=== PATIENT | male | born 1970 | race Caucasian/White ===

== ENCOUNTER → 2017-10-28 | Outpatient (CLI) | payer OTHER | END | disposition home or self-care (01) | LOC: PEDOP 19:02 | PROVIDERS: ATTEND Orthopaedic Surgery | DX: Z01.812 Encounter for preprocedural laboratory examination (principal) | CPT/HCPCS: 87070; 99212 ==

== ENCOUNTER 2017-11-04 12:24 | Day surgery (SDC) | payer OTHER ==
[2017-10-27 16:43] VITALS: BMI 41.1
--- NOTE | 2017-11-04 08:33 | HP ---
HISTORY AND PHYSICAL CHIEF COMPLAINT: Left knee pain. 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 He notes pain that limits his normal function and activities. He has intermittent swelling, stiffness, and giving way. He has tried previous injections in addition to medications with only partial temporary relief. PAST MEDICAL HISTORY: Significant for hypertension, hypercholesterolemia, kidney stones, type 2 diabetes. PAST SURGICAL HISTORY: Significant for previous right knee arthroscopy. CURRENT MEDICATIONS: 1. Amlodipine. 2. Atorvastatin. 3. etolodac 4. Hydrochlorothiazide. 5. Metformin. 6. Trazodone. ALLERGIES: He denies drug allergies. FAMILY HISTORY: Significant for cancer and diabetes. SOCIAL HISTORY: Negative for current tobacco or alcohol use. REVIEW OF SYSTEMS: Sixteen-point review of systems otherwise reviewed and is noncontributory. PHYSICAL EXAMINATION: On examination, the patient is approximately 5 feet, 11 inches, 295 pounds of endomorphic habitus. HEENT exam is nonfocal. Neck is supple. He has painless passive motion of his left hip. Straight leg raise is negative. Active motion left knee -12 to 80 degrees of flexion. He is tender about the medial and lateral joint line. He has a large effusion. Collaterals are stable, Jarrod's negative, Jimmie's is equivocal. His distal neurovascular exam appears intact in the left lower extremity. Previous x-rays of the left knee obtained in the office show severe medial and patellofemoral compartment narrowing. IMPRESSION: 1. Left knee severe medial and patellofemoral compartment osteoarthrosis. 2. Increased body mass index. 3. Fck-koobhum-iunukssmg diabetes. RECOMMENDATIONS: I talked to the patient at length regarding his condition and treatment options. At this point, he remains quite symptomatic despite extensive conservative measures. After thorough discussion, he opts to proceed with surgery. We will plan to proceed with left total knee arthroplasty. Risks and benefits were discussed at length in layman's terms. The patient underwent preoperative medical evaluation by Dr. Junior Webb. We will institute DVT prophylaxis postoperatively. MMODL / IJN: [id number] / RIYA
[~2017-11-04 12:24] MED LIST: ACETAMINOPHEN TAB 500 MG TAB PO ONE; MELOXICAM 7.5 MG TAB PO ONE; TRANEXAMIC ACID 1,000 MG in SODIUM CHLORIDE 0.9% 50 ML IVPB ONE
[2017-11-04] MEDS ORDERED: ONDANSETRON 4 MG/2 ML VIAL ONE (13:37)
[2017-11-04 13:43] LABS: Glucose,Whole Blood 104 mg/dL (75-99)
[2017-11-04] MEDS: LACTATED RINGERS 1,000 ML IV ONE ×2 (13:44→17:10)
[2017-11-04] MEDS: MIDAZOLAM 2 MG/2 ML VIAL ONE ×2 (13:48→13:49)
[2017-11-04] MEDS ORDERED: DEXAMETHASONE SOD PHOS (MDV) 100 MG/10 ML VIAL IVP ONE (14:00)
[2017-11-04] MEDS ORDERED: LACTATED RINGERS 1,000 ML IV ONE ×3 (14:08→17:41)
[2017-11-04] MEDS ORDERED: MIDAZOLAM 2 MG/2 ML VIAL ONE (14:08)
[2017-11-04] MEDS ORDERED: TRANEXAMIC ACID 1,000 MG/10 ML VIAL ONE (14:08)
[2017-11-04] MEDS ORDERED: fentaNYL (PF) 50 MCG/ML 2 ML AMP ONE (14:08)
[2017-11-04] MEDS ORDERED: PROPOFOL 10 MG/ML 20 ML VIAL IV ONE (14:08)
[2017-11-04] MEDS ORDERED: diphenhydrAMINE 50 MG/ML 1 ML VIAL ONE (14:08)
[2017-11-04] MEDS ORDERED: HYDROmorphone (PF) 1 MG/ML ONE (14:08)
[2017-11-04] MEDS ORDERED: SODIUM CHLORIDE 0.9% 100 ML BAG ONE (14:08)
[2017-11-04] MEDS ORDERED: MIDAZOLAM 2 MG/2 ML VIAL IV PRN (14:12)
[2017-11-04] MEDS ORDERED: ONDANSETRON 4 MG/2 ML VIAL IVP ONE (14:12)
[2017-11-04] MEDS ORDERED: LACTATED RINGERS 1,000 ML IV SCH (14:12)
[2017-11-04] MEDS ORDERED: DEXAMETHASONE SOD PHOSPHATE 10 MG/ML 1 ML VIAL IV ONE (14:12)
[2017-11-04] MEDS ORDERED: ceFAZolin 3,000 MG in SODIUM CHLORIDE 0.9% IRRIGATIO 3,000 ML IRRIGATION ONE (14:39)
[2017-11-04] MEDS ORDERED: ROPIVACAINE 246.25 MG, EPINEPHrine 0.5 MG, KETOROLAC 30 MG, cloNIDine HCL/PF 80 MCG, WA... MISCELLANE ONE ×5 (14:44)
[2017-11-04] MEDS ORDERED: ONDANSETRON 4 MG/2 ML VIAL IVP PRN (16:33)
[2017-11-04] MEDS ORDERED: HYDROcodone/APAP 7.5-325MG 1 EACH TAB PO PRN (16:33)
[2017-11-04] MEDS ORDERED: MORPHINE SULFATE 2 MG/ML SYRINGE IV PRN (16:33)
[2017-11-04] MEDS ORDERED: MORPHINE SULFATE 2 MG/ML SYRINGE IVP PRN (16:33)
[2017-11-04] MEDS ORDERED: NALOXONE 0.4 MG/ML 1 ML VIAL IV PRN (16:33)
--- NOTE | 2017-11-04 16:46 | P.OP ---
Date of Procedure: 11/04/17 Preoperative Diagnosis: Left knee severe tricompartmental osteoarthrosis Postoperative Diagnosis: Same Procedure(s) Performed: Left total knee kwixifiwziqj-pithhzjt-dmdxucrsd stabilized Implants: Depuy Attune size 7 cemented posterior stabilized femoral component, size 6 cemented tibial component, 9 mm articular surface, 35 mm cemented patellar component. This is a posterior stabilized implant. Anesthesia: GETA, regional, local, spinal Surgeon: Ricardo Lowe Estimated Blood Loss (ml): 50 Pathology: other (Bone fragments) Condition: stable Disposition: PACU Indications for Procedure: The patient's a 46-year-old male who presents with progressive left knee pain secondary to osteoarthrosis despite conservative measures. A discussion of the risks and benefits of operative intervention versus continued conservative measures was made with the patient. He opted to proceed with surgery. Operative risks to include infection, neurovascular injury, development of blood clots, possible component loosening, possible component failure need for subsequent procedures was discussed. Informed consent was obtained. Operative Findings: As below Description of Procedure: The patient was brought to the operating room, and after induction of spinal anesthesia the left lower extremity was prepped and draped in a normal fashion. The tourniquet was inflated to 270 mmHg. A longitudinal incision extending 3 finger breaths above the superior pole of patella extending to the medial aspect the tibial tubercle was then made. The skin and subcutaneous tissues were divided sharply. Electrocautery was used for hemostasis. A medial parapatellar arthrotomy is performed. The medial soft tissues to include the superficial and deep portions of the medial collateral ligament and medial hamstring tendons were elevated subperiosteally. The proximal medial tibia osteophytes were carefully removed. The patella was everted. A portion of the retropatellar fat pad was excised sharply. The knee was flexed. The anterior cruciate ligament was sacrificed. A starting hole was made in the distal femur 1 cm anterior to the posterior cruciate ligament origin. An intramedullary femoral guide was gently inserted planning a 5 valgus distal cut with 9 mm distal resection. The cutting block was pinned in place. The distal cut was then made. The posterior referencing sizing guide was utilized. I felt size 7 was most appropriate. 3 of external rotation was built into the system and verified off the trans-epicondylar axis the posterior condyles. The cutting block was pinned in place. The anterior, posterior, and chamfer cuts were then made. The bone fragments were removed. The box guide was utilized for the intercondylar notch cut. A reciprocating saw was utilized for the bone was removed in one fragment. The trial size 7 femoral components placed and was fully seated. There is good anterior to posterior and medial to lateral fit. The distal peg holes were then drilled. The trial component was removed. Attention was then paid towards preparing the proximal tibia. An extra measure tibial guide was utilized in line with the tibial shaft and second metatarsal distally. A 0 posterior slope cutting block was utilized. I planned on 2 mm resection from the medial compartment. The cutting block was pinned in place. The proximal tibial cut was made. The bone was removed in one fragment. The tibia sized most appropriately size 6. The remnants of the medial and lateral menisci were excised at the capsular junction with electrocautery. The patient' s anesthesia was converted to general as the spinal was insufficient. The trial components were placed along with a 9 mm articular surface. I was tight in both flexion and extension therefore an additional 2 mm was resected from the proximal tibia utilizing the cutting block. Again the trial components were placed and was able to obtain full flexion and extension with good stability with varus and valgus stress. After several flexion and extension cycles, the tibial rotation was marked with electrocautery in line with the medial one third of the tibial tubercle. Attention was then paid towards preparing the patella. A patella reamer was utilized taking Fany 15 mm of bone stock. A good flush cut was made. The patella sized most appropriately 35 mm. The peg holes were drilled. The trial components placed. The knee was taken through range of motion. I had good patellofemoral tracking with no hands technique. The trial components were then removed. The posterior osteophytes off the distal femur were carefully removed with a curved osteotome. The tibia was prepared in the appropriate rotation with appropriate drill and keel punch. The flexion and extension gaps were checked and felt to be symmetric. The posterior soft tissues were injected with ropivacaine. The bony surfaces were prepared with pulsatile lavage and dried. Additional drill holes were made in the proximal medial tibia to facilitate cement interdigitation. The tibial component was then cemented in placed and was fully seated. Excess cement was removed. The femoral component was cemented in place and was fully seated. Excess cement was removed. The trial 9 mm articular surface was placed and the knee was put in full extension. The patella component was cemented place as well. After the cement had sufficiently hardened, the knee was again taken through range of motion. Again I was able to obtain full flexion and extension with good stability with varus and valgus stress. The trial articular surface was removed and the final one inserted. This was fully seated. Care was taken to avoid any soft tissue interposition. Pulsatile lavage was again utilized. The tourniquet was deflated the proximal a 70 minutes total tourniquet time. The medial parapatellar arthrotomy was closed with #2 Ethibond suture. The second dose of IV TXA was given. A deep drain was placed exiting laterally. The subcu tissues reapproximated interrupted 2-0 Vicryl sutures. The skin was reapproximated with 3-0 strata fix suture. Skin tape and adhesive was applied. A sterile dressing was applied. The patient was awoken from general anesthesia and transferred to the recovery room in good condition. Blood loss was estimated at 50 mL. No complications were incurred. Sponge and needle counts were correct at the end the case.
[2017-11-04] MEDS: HYDROmorphone 0.5 MG/0.5 ML SYRINGE IVP PRN ×3 (16:47→17:21)
--- NOTE | 2017-11-04 17:02 | XR ---
PROCEDURE: XR knee limited LT 2 views DATE AND TIME: 11/04/2017 4:57 PM REFERRING PHYSICIAN: Ricardo Lowe MD CLINICAL INDICATION: PHH, Evaluation for Postop abnormality and alignment TECHNIQUE: Department protocol. COMPARISON: None FINDINGS: Post TKR, with anatomic positioning and alignment noted. No unexpected postoperative change s. IMPRESSION: Postoperative study.
[2017-11-04] MEDS ORDERED: ROPIVACAINE 1,100 MG, SODIUM CHLORIDE 0.9% 330 ML MISCELLANE PRN ×2 (17:25)
--- NOTE | 2017-11-04 17:27 | P.ONQ ---
Anesthesiology Proc Note - PNB - Peripheral Nerve Block Performed Left Adductor Canal Infusion Time Out Performed: Yes Procedure Start Time: 13:49 Procedure Stop Time: 14:00 Indication: Acute Post-Operative Pain, Requested by physician Sedation Type: Sedate with meaningful contact maintained Preparation: Sterile Dressing Position: Supine Catheter: Indwelling Needle Types: On-Q Needle Size: 100mm (4") Needle Gauge: 21 Technique: Ultrasound Injectate: 0.5% Ropivacaine (see comment for volume) (ropi .5% 20cc) Blood Aspirated: No Pain Paresthesia on Injection Noted: No Resistance on Injection: Normal Events: Uneventful and Well Tolerated
[2017-11-04] MEDS ORDERED: ACYCLOVIR OINTMENT TOPICAL PRN (19:58)
[2017-11-04 20:52] VITALS: RESP 16
[2017-11-04 20:55] LABS: Glucose,Whole Blood 163 mg/dL (75-99)
[2017-11-04] MEDS: INSULIN ASPART 100 UNIT/ML 1 ML 10 ML VIAL SQ SCH (21:12)
[2017-11-04] MEDS: POTASSIUM CHLORIDE ER 10 MEQ TAB.ER.PRT PO SCH (21:13)
[2017-11-04] MEDS: metFORMIN 500 MG TAB PO SCH (21:13)
[2017-11-04] MEDS: SODIUM CHLORIDE 0.9% 1,000 ML IV SCH (21:25)
--- NOTE | 2017-11-04 22:18 | CONS ---
CONSULTATION The reason for consultation is advice regarding diabetes, hypertension and hyperlipidemia requested by Orthopedic Surgery. HISTORY OF PRESENT ILLNESS: This 46-year-old gentleman with a past history of hypertension, diabetes and DJD being followed by Dr. Santiago Webb in the outpatient was admitted after left total knee arthroplasty. The patient is being closely monitored. There is no history of chest pain. No palpitations, headache, loss of consciousness, seizures, nausea, vomiting or diarrhea at this time. Pulse ox 92% on room air. PAST MEDICAL HISTORY: Diabetes mellitus, hypertension, hyperlipidemia, history of DJD. MEDICATIONS: Prior to admission include home medications: 1. Metformin 500 mg p.o. b.i.d. 2. Norvasc 10 mg daily. 3. Triamterene/hydrochlorothiazide 1 tablet p.o. daily. 4. Klor-Con 10 30 mg p.o. b.i.d. 5. Multivitamins 1 p.o. daily. 6. HydroDIURIL 25 mg p.o. daily. 7. Glucosamine 1500 mg p.o. daily. 8. Fish oil 1 each daily. 9. Lodine XL 500 mg p.o. daily. 10.Lipitor 40 mg daily. 11.Zovirax 1 application topically daily. ALLERGIES: None. FAMILY HISTORY: History of blood disorder, DVT, factor V Leiden deficiency. SOCIAL HISTORY: No history of smoking, occasional alcohol. REVIEW OF SYSTEMS: ENT: No diminished vision or hearing. CARDIOVASCULAR: No angina. RESPIRATORY: No cough or hemoptysis. GI: No nausea. : No dysuria. NERVOUS SYSTEM: No numbness or weakness. ALLERGY/IMMUNOLOGY: No asthma or hayfever. MUSCULOSKELETAL: As mentioned earlier. HEMATOLOGY: No history of anemia. ENDOCRINE: Diabetes mellitus. CONSTITUTIONAL: As mentioned. DERMATOLOGY: Negative. RHEUMATOLOGY: As mentioned earlier. PSYCHIATRY: As mentioned earlier. PHYSICAL EXAMINATION: Alert and oriented x3. Pulse 87, blood pressure 180/71, respiration 16, temperature 97.8, pulse ox 94% on room air. HEENT: Conjunctivae normal. Oral mucosa moist. Neck is no jugular venous distention. No carotid bruit. No lymph node enlargement. CARDIOVASCULAR: S1, S2. No S3, S4. RESPIRATORY: Breath sounds diminished in the bases. No rhonchi. No crackles. ABDOMEN: Soft, nontender. LEGS: Status post left knee arthroplasty. NERVOUS SYSTEM: No focal deficits. SKIN: No ulcer, rash or bleeding. LAB STUDIES: Glucose 163. ASSESSMENT: 1. Status post left total knee joint arthroplasty. 2. Diabetes mellitus type 2. 3. Hypertension. 4. Hyperlipidemia. 5. Degenerative joint disease. 6. History of nephrolithiasis. 7. History of factor V Leiden tested negative. 8. FULL CODE. RECOMMENDATIONS AND DISCUSSION: In this 46-year-old gentleman who presented with multiple complex medical issues, we will monitor the patient closely. Continue the current management and continue symptomatic treatment. At this time I recommend to resume the home medications. Monitor blood sugars closely. Xarelto has been initiated for DVT prophylaxis. We will closely follow the patient with you and the patient may be asked to follow the primary physician closely. Thank you, Dr. Schmitt, for letting us participate. ERICA / XAVIER: [id number] /
[2017-11-04] MEDS: ceFAZolin IN SWFI 2 GM/20 ML SYRINGE IVP SCH (23:16)
[2017-11-05 06:56] LABS: Basophils % (A) 0 %; Eosinophils % (A) 0 %; HCT 38.2 % (39.0-53.0); HGB 12.6 gm/dL (13.0-17.5); Lymphocytes # (A) 1.2 k/uL (1.0-4.8); Lymphocytes % (A) 9 %; MCH 29.8 pg (25.0-35.0); MCHC 32.9 g/dL (31.0-37.0); MCV 90.5 fL (80.0-100.0); Mean Platelet Volume 6.5; Monocytes # (A) 0.7 k/uL (0-1.0); Monocytes % (A) 6 %; Neutrophils # (A) 10.6 k/uL (1.3-7.7); Neutrophils % (A) 84 %; Platelet Count 262 k/uL (150-450); RBC 4.22 m/uL (4.30-5.90); WBC 12.7 k/uL (3.8-10.6)
[2017-11-05 07:21] LABS: Glucose,Whole Blood 132 mg/dL (75-99)
[2017-11-05 07:46] VITALS: BP 120/73; PULSE 83; TEMP 97.6
[2017-11-05] MEDS: metFORMIN 500 MG TAB PO SCH (08:05)
[2017-11-05] MEDS: POTASSIUM CHLORIDE ER 10 MEQ TAB.ER.PRT PO SCH (08:08)
[2017-11-05] MEDS: HYDROcodone/APAP 7.5-325MG 1 EACH TAB PO PRN ×2 (08:09→13:29)
[2017-11-05] MEDS: INSULIN ASPART 100 UNIT/ML 1 ML 10 ML VIAL SQ SCH ×2 (08:11→12:57)
[2017-11-05] MEDS: ceFAZolin IN SWFI 2 GM/20 ML SYRINGE IVP SCH (08:12)
[2017-11-05] MEDS ORDERED: HYDROCHLOROTHIAZIDE 25 MG TAB PO SCH (09:00)
[2017-11-05] MEDS ORDERED: ATORVASTATIN 40 MG TAB PO SCH (09:00)
[2017-11-05] MEDS ORDERED: amLODIPine 10 MG TAB PO SCH (09:00)
[2017-11-05] MEDS ORDERED: TRIAMTERENE-HCTZ 37.5-25MG 1 EACH TAB PO SCH (09:00)
[2017-11-05] MEDS ORDERED: MULTIVITAMINS, THERA 1 EACH TAB PO SCH (09:00)
[2017-11-05] MEDS ORDERED: RIVAROXABAN 10 MG TAB PO SCH (09:00)
--- NOTE | 2017-11-05 10:34 | P.PN ---
Progress Note - Text The patient is status post left adductor canal catheter placement. The catheter was placed for postoperative pain control, status post total left arthroplasty. Ropivacaine 0.2% is infusing at 8 mLs per hour. The patient has no complaints of left lower extremity numbness or weakness. Patient's VAS score is 0 -10. Assessment: Patient's adductor canal catheter is in place and working appropriately. Plan: continue infusion and adjust it as needed.
[2017-11-05 11:31] LABS: Glucose,Whole Blood 145 mg/dL (75-99)
--- NOTE | 2017-11-05 11:43 | P.PN ---
Subjective Progress Note Date: 11/05/17 Principal diagnosis: Status post left total knee arthroplasty Patient is seen today resting in his hospital bed, his family is present with him. Doing very well at this time. Patient is urinating without difficulty. He is done well with physical therapy. He denies any chest pain or shortness of breath. Objective - Vital Signs Vital signs: Vital Signs Temp 97.6 F 11/05/17 07:44 Pulse 83 11/05/17 07:44 Resp 16 11/05/17 07:44 BP 120/73 11/05/17 07:44 Pulse Ox 99 11/05/17 07:44 Intake & Output 11/04/17 11/05/17 11/05/17 18:59 06:59 18:59 Intake Total 2000 Output Total 150 600 425 Balance 1851 -600 -425 Weight 133.81 kg Intake: IV 2000 Output: Drainage 150 Left Knee 150 Urine 100 450 425 Uretheral (Rojas) 300 Estimated Blood Loss 50 Other: Voiding Method Indwelling Catheter - Exam Left lower extremity: Incision is clean, dry, and intact. The prineo tape is in good condition. There is minimal soft tissue swelling and ecchymosis surrounding the medial and lateral aspects of the incision. Calf is soft, no tenderness with palpation. Plantar flexion, dorsiflexion, EHL, FHL are intact. Sensory exam to light touch throughout the extremity is intact, dorsal pedis pulses 2+. - Labs CBC & Chem 7: 11/05/17 06:31 Labs: Abnormal Lab Results - Last 24 Hours (Table) 11/04/17 11/04/17 11/05/17 Range/Units 13:28 20:33 06:31 WBC 12.7 H (3.8-10.6) k/uL RBC 4.22 L (4.30-5.90) m/uL Hgb 12.6 L (13.0-17.5) gm/dL Hct 38.2 L (39.0-53.0) % Neutrophils # 10.6 H (1.3-7.7) k/uL POC Glucose (mg/dL) 104 H 163 H (75-99) mg/dL 11/05/17 11/05/17 Range/Units 07:19 11:28 WBC (3.8-10.6) k/uL RBC (4.30-5.90) m/uL Hgb (13.0-17.5) gm/dL Hct (39.0-53.0) % Neutrophils # (1.3-7.7) k/uL POC Glucose (mg/dL) 132 H 145 H (75-99) mg/dL Assessment and Plan Plan: Assessment: 1. Postop day 1 status post left total knee arthroplasty Plan: Pain control, continue use of oral medication at home GI and DVT prophylaxis, Xarelto 10 mg once daily for 12 days Wound care instructions were discussed Icing and elevating techniques were discussed Medical recommendations Discharge planning: Patient will be discharged home today Time with Patient: Less than 30
--- NOTE | 2017-11-05 11:47 | P.DS ---
Providers Date of admission: 11/04/2017 Expected date of discharge: 11/05/17 Attending physician: Ricardo Lowe Consults: 11/04/17 16:33 Consult Physician Routine Consulting Provider: Betsy Reece Consult Reason/Comments: postop management Do you want consulting provider notified?: Yes Primary care physician: Junior Villanueva [facility] Course: Date of admission: 11/04/2017 Date of discharge: 11/05/2017 Admission diagnosis: Status post left total knee arthroplasty Discharge diagnosis: Same Attending physician: Dr. Lowe Surgical procedures: Left total knee arthroplasty Brief history: Patient is a 46-year-old male with a history of with progressive primary left knee osteoarthritis. At this point patient has failed conservative treatment measures and has opted to proceed with a elective left total knee arthroplasty. Hospital course: Details of patient's surgery can be found in operative report. Patient tolerated the procedure well and was subsequently transported to orthopedic floor. Patient's orthopeidc and medical care was provided daily. Patient had daily laboratory tests performed for evaluation of overall blood counts. Patient had daily physical therapy to include strengthening range of motion as well as education with walker ambulation. Patient had daily CPM usage as part of their physical therapy program. Patient was treated with Xarelto for their postoperative DVT prophylaxis during their inpatient stay. Patient was noted to have a relatively uneventful postoperative course. Patient reported satisfactory pain control with oral pain medications by postoperative day 0. Patient showed satisfactory progress with physical therapy. Patient moved steadily through the program and had no difficulty meeting the goals by postoperative day 1. Given patient's otherwise satisfactory course and having met physical therapy goals, plan is to discharge patient home on postoperative day 1. Discharge condition/disposition: Patient will be discharged home in stable condition. Discharge medications: Instructions are given on resumption of patient's normal daily medications per primary care recommendation, in addition patient will be prescribed [place] 7.5 mg/325 mg, tramadol 50 mg, Colace 100 mg, Xarelto 10 mg. Discharge instructions: 1. Wound care and infection precautions, keep incision dry and covered while showering, no lotions, creams, moisturizers. No soaking, tubs, pools, hottubs. Do not scrub over the incision. 2. Weight-bear [as tolerated] with walker / cane until follow-up. 3. Ice and elevate when necessary. Do not exceed 20 minutes per hour with ice pack. 4. Utilize compression sleeve until seen at first follow up appointment. 5. Visiting nursing care. 6. Home physical therapy [including home CPM]. 7. Pain meds and anticoagulants per prescription. 8. Pain medication has potential to cause constipation. Increase oral fluid and fiber intake. Contact primary care provider if you have not had a bowel movement within 48 hours after discharge 9. No anti-inflammatory medication until discussed at first post operative visit, this including Motrin, Aleve, Mobic, Diclofenac. 10. Follow up in office at 2 weeks postop with Efrem Da Silva PA-C 11. Follow up with your primary care doctor 7-10 days after discharge. 12. Contact [facility] with any questions, . Procedures: Left total knee arthroplasty Patient Condition at Discharge: Good Plan - Discharge Summary Discharge Rx Participant: Yes New Discharge Prescriptions: New Rivaroxaban [Xarelto] 10 mg PO DAILY #12 tab Docusate [Colace] 100 mg PO DAILY #30 capsule HYDROcodone/APAP 7.5-325MG [[place] 7.5] 1 - 2 each PO Q6HR PRN #56 tab PRN Reason: Pain traMADol HCl [Ultram] 50 mg PO Q6H PRN #28 tab PRN Reason: Pain No Action Etodolac [Lodine XR] 500 mg PO DAILY Acyclovir 5% Oint [Zovirax Oint] 1 applic TOPICAL 5XD PRN PRN Reason: Cold Sores amLODIPine [Norvasc] 10 mg PO DAILY metFORMIN HCL [Glucophage] 500 mg PO BID Hydrochlorothiazide [Hydrodiuril] 25 mg PO DAILY Glucosamine Sulfate 1,500 mg PO DAILY Atorvastatin [Lipitor] 40 mg PO DAILY Triamterene/Hydrochlorothiazid [Triamterene-Hctz 37.5-25 mg Tb] 1 each PO DAILY Potassium Chloride [Klor-Con 10] 30 meq PO BID Multivitamin [Men's Multi-Vitamin] 1 each PO DAILY Fish Oil/Dha/Epa [Fish Oil 1,200 mg Fish Oil] 1 each PO DAILY Discharge Medication List Acyclovir 5% Oint [Zovirax Oint] 1 applic TOPICAL 5XD PRN 10/27/17 [History] Atorvastatin [Lipitor] 40 mg PO DAILY 10/27/17 [History] Etodolac [Lodine XR] 500 mg PO DAILY 10/27/17 [History] Fish Oil/Dha/Epa [Fish Oil 1,200 mg Fish Oil] 1 each PO DAILY 10/27/17 [History] Glucosamine Sulfate 1,500 mg PO DAILY 10/27/17 [History] Hydrochlorothiazide [Hydrodiuril] 25 mg PO DAILY 10/27/17 [History] Multivitamin [Men's Multi-Vitamin] 1 each PO DAILY 10/27/17 [History] Potassium Chloride [Klor-Con 10] 30 meq PO BID 10/27/17 [History] Triamterene/Hydrochlorothiazid [Triamterene-Hctz 37.5-25 mg Tb] 1 each PO DAILY 10/27/17 [History] amLODIPine [Norvasc] 10 mg PO DAILY 10/27/17 [History] metFORMIN HCL [Glucophage] 500 mg PO BID 10/27/17 [History] Docusate [Colace] 100 mg PO DAILY #30 capsule 11/05/17 [Rx] HYDROcodone/APAP 7.5-325MG [[place] 7.5] 1 - 2 each PO Q6HR PRN #56 tab 11/05/17 [ Rx] Rivaroxaban [Xarelto] 10 mg PO DAILY #12 tab 11/05/17 [Rx] traMADol HCl [Ultram] 50 mg PO Q6H PRN #28 tab 11/05/17 [Rx] Follow up Appointment(s)/Referral(s): Aniceto Da Silva PAC [PHYSICIAN [facility]] - 2 Weeks Junior Webb MD [Primary Care Provider] - 11/20/17 2:30 pm Patient Instructions/Handouts: *Surgery [facility] - On-Q Pain Pump Discharge Instructions, Knee Replacement (DC) Activity/Diet/Wound Care/Special Instructions: [facility] care: Replaced by [facility] - [phone] - Please call once home to arrange delivery of CPM Orthopedic Discharge Instructions: 1. Wound care and infection precautions, keep incision dry and covered while showering, no lotions, creams, moisturizers. No soaking, pools, hot tubs. Do not scrub over incision. 2. Weight-bear as tolerated with walker / cane until follow-up. 3. Ice and elevate when necessary. Do not exceed 20 minutes per hour with ice pack. 4. Utilize compression sleeve until seen at first follow up appointment. 5. Visiting nursing care. 6. Home physical therapy including home CPM. 7. Pain meds and anticoagulants per prescription. 8. Pain medication has potential to cause constipation. Increase oral fluid and fiber intake. Contact primary care provider if you have not had a bowel movement within 48 hours after discharge. 9. No anti-inflammatory medication until discussed at first post operative visit, this including Motrin, Aleve, Mobic, Diclofenac. 10. Follow up in office at 2 weeks postop with Efrem Da Silva PA-C 11. Follow up with your primary care doctor 7-10 days after discharge. 12. Contact [facility] with any questions, . Discharge Disposition: HOME WITH HOME HEALTH SERVICES
[2017-11-05 13:22] LABS: Hemoglobin A1C 6.4 % (4.0-6.0)
[2017-11-05] MEDS: SODIUM CHLORIDE 0.9% 1,000 ML IV SCH (13:46)
--- NOTE | 2017-11-05 15:07 | P.PN ---
Subjective No overnight events blood pressure is well controlled. Objective - Vital Signs Vital signs: Vital Signs Temp 97.6 F 11/05/17 07:44 Pulse 83 11/05/17 07:44 Resp 16 11/05/17 07:44 BP 120/73 11/05/17 07:44 Pulse Ox 99 11/05/17 07:44 Intake & Output 11/04/17 11/05/17 11/05/17 18:59 06:59 18:59 Intake Total 2000 Output Total 053 307 9874 Balance 1851 -600 -1475 Weight 133.81 kg Intake: IV 2000 Output: Drainage 150 Left Knee 150 Urine 544 577 2442 Uretheral (Rojas) 300 Estimated Blood Loss 50 Other: Voiding Method Indwelling Catheter - Exam PHYSICAL EXAMINATION: GENERAL: The patient is alert and oriented x3, not in any acute distress. Well developed, well nourished. HEENT: Pupils are round and equally reacting to light. EOMI. No scleral icterus. No conjunctival pallor. Normocephalic, atraumatic. No pharyngeal erythema. No thyromegaly. CARDIOVASCULAR: S1 and S2 present. No murmurs, rubs, or gallops. PULMONARY: Chest is clear to auscultation, no wheezing or crackles. ABDOMEN: Soft, nontender, nondistended, normoactive bowel sounds. No palpable organomegaly. MUSCULOSKELETAL: No joint swelling or deformity. EXTREMITIES: Deferred to orthopedic surgery NEUROLOGICAL: Gross neurological examination did not reveal any focal deficits. SKIN: No rashes. - Labs CBC & Chem 7: 11/05/17 06:31 Labs: Abnormal Lab Results - Last 24 Hours (Table) 11/04/17 11/05/17 11/05/17 Range/Units 20:33 06:31 06:31 WBC 12.7 H (3.8-10.6) k/uL RBC 4.22 L (4.30-5.90) m/uL Hgb 12.6 L (13.0-17.5) gm/dL Hct 38.2 L (39.0-53.0) % Neutrophils # 10.6 H (1.3-7.7) k/uL POC Glucose (mg/dL) 163 H (75-99) mg/dL Hemoglobin A1c 6.4 H (4.0-6.0) % 11/05/17 11/05/17 Range/Units 07:19 11:28 WBC (3.8-10.6) k/uL RBC (4.30-5.90) m/uL Hgb (13.0-17.5) gm/dL Hct (39.0-53.0) % Neutrophils # (1.3-7.7) k/uL POC Glucose (mg/dL) 132 H 145 H (75-99) mg/dL Hemoglobin A1c (4.0-6.0) % Assessment and Plan Plan: -Status post left knee arthroplasty pain management due to prophylaxis as per primary service -Type 2 diabetes mellitus patient is resumed on home medications, blood sugars appear to be well-controlled patient will be resumed and continued same medications at home. -Hypertension patient had of hypotension post surgery presently doing okay can continue his home medications -Hyperlipidemia -Leukocytosis secondary to left knee arthroplasty without any signs or symptoms of infection. -Patient's discharge medications were reviewed upon discharge okay to be discharged from medical perspective
== END 2017-11-05 13:50 | disposition home health service (06) ==
LOC: OR 12:24 → 3SUR 16:32 → OR 11-05 13:50
PROVIDERS: ATTEND Orthopaedic Surgery
DX: M17.12 Unilateral primary osteoarthritis, left knee (principal); I10 Essential (primary) hypertension; E78.5 Hyperlipidemia, unspecified; E11.9 Type 2 diabetes mellitus without complications; Z79.84 Long term (current) use of oral hypoglycemic drugs; E78.00 Pure hypercholesterolemia, unspecified; Z87.442 Personal history of urinary calculi; I95.81 Postprocedural hypotension; Z79.1 Long term (current) use of non-steroidal anti-inflammatories (NSAID); Z79.899 Other long term (current) drug therapy
CPT/HCPCS: 97161; 85025; 83036; 73560; 27442; C1713; C1776; C1772; J2250; J0171; J0690 ×4; J2405; J1885; J1100; J2795; J0735; J1170; 88300

== ENCOUNTER → 2021-12-03 | Outpatient (CLI) | payer BC ==
--- NOTE | 2021-12-03 10:28 | CT ---
EXAMINATION TYPE: CT heart w calcium score DATE OF EXAM: 12/03/2021 COMPARISON: None HISTORY: Screening for cardiovascular disorder. 213.9 CT DLP: 286.6 mGycm Automated exposure control for dose reduction was used. CT CALCIUM SCORING Coronary calcium is a marker for plaque (fatty deposits) in a blood vessel or atherosclerosis (harden ing of the arteries). The presence and amount of calcium detected in a coronary artery by the CT sca n, indicates the presence and amount of atherosclerotic plaque. These calcium deposits appear years before the development of heart disease symptoms such as chest pain and shortness of breath. A calcium score is computed for each of the coronary arteries based upon the volume and density of th e calcium deposits. This can be referred to as your calcified plaque burden. It does not correspond directly to the percentage of narrowing in the artery but does correlate with the severity of the un derlying coronary atherosclerosis. PROCEDURE TECHNIQUE - Prospective Gating was used. Slice thickness: 3mm. Density threshold (HU): 130, Pixel threshold: 3, Algorithm: discrete. RESULTS Region: LM Calcium Score ([place]): 32.39 Volume (mm3): 33.13 Mass (g): 11.04 Region: RCA Calcium Score ([place]): 2323.15 Volume (mm3): 1914.76 Mass (g): 638.25 Region: LAD Calcium Score ([place]): 226.74 Volume (mm3): 180.54 Mass (g): 60.18 Region: CX Calcium Score ([place]): 0 Volume (mm3): 0 Mass (g): 0 Region: PDA Calcium Score ([place]): 0 Volume (mm3): 0 Mass (g): 0 Total: Calcium Score ([place]): 2582.28 Volume (mm3): 2128.43 Mass (g): 709.48 TOTAL CALCIUM SCORE: 2582.28 IMPRESSION: Calcium Score: 401 or higher Implication: Extensive atherosclerotic plaque Risk of Coronary Artery Disease: High likelihood of at least one significant coronary narrowing. There is calcified coronary plaque. Total calcium score: 2582.28. The hyperdensity of these calcifica tions are within the RCA. Follow up with primary care provider. Primary prevention for atherosclerosi s cardiovascular disease as indicated by clinical measures. CALCIUM SCORE IMPLICATION RISK OF C ORONARY ARTERY DISEASE 0 No identifiable plaque Very low, generally less than 5% 1-10 Minimal identifiable plaque Very unlikely, less than 10% 11-100 Definite, at least mild atherosclerotic plaque Mild or m inimal coronary narrowings likely 101-400 Definite, at least moderate atherosclerotic plaque Mild coronary ar romeo disease highly likely, significant narrowing possible 401 or Higher Extensive atherosclerotic plaque High lik elihood of at least one significant coronary narrowing
== END | disposition home or self-care (01) ==
LOC: RADCTMAIN 09:05
PROVIDERS: ATTEND Internal Medicine
DX: Z13.6 Encounter for screening for cardiovascular disorders (principal); I25.84 Coronary atherosclerosis due to calcified coronary lesion
CPT/HCPCS: 75571